=== PATIENT | male | born 1995 | race Caucasian/White ===

== ENCOUNTER 2021-06-12 23:35 | Emergency (ER) | payer MEDICAID ==
[~2021-06-12] VITALS: Ht 185.4 cm; Wt 90.6 kg
[2021-06-12 23:40] VITALS: BP 147/81
[2021-06-13 01:01] LABS: BASOPHILS % 0.7 % (0.0-2.0); EOSINOPHILS % 0.9 % (0.0-5.0); HEMATOCRIT. 41.8 % (42.0-52.0); LYMPHOCYTES % 24.7 % (20.0-50.0); MEAN CORPUSCULAR HEMOGLOBIN 31.8 pg (28.0-32.0); MEAN PLATELET VOLUME 9.5 fl (7.4-10.4); MONOCYTES % 10.2 % (2.0-8.0); NEUTROPHILS % 63.5 % (40.0-76.0); PLATELET 267 x1000/uL (130-400); RED CELL DISTRIBUTION WIDTH 13.3 % (11.6-14.6)
[2021-06-13 01:07] LABS: CHLORIDE 108 mEq/L (98-107)
[2021-06-13 01:41] LABS: CLARITY URINE CLEAR (CLEAR); COLOR URINE YELLOW (YELLOW); KETONES URINE TRACE (NEGATIVE); LEUKOCYTE ESTERASE URINE TRACE (NEGATIVE); NITRITE URINE NEGATIVE (NEGATIVE); OCCULT BLOOD URINE NEGATIVE (NEGATIVE); PH URINE 5.5 (4.5-8.0); PROTEIN URINE TRACE (NEGATIVE); SPECIFIC GRAVITY URINE 1.028 (1.005-1.030)
[2021-06-13] MEDS ORDERED: MAGNESIUM/ALUMINUM HYDROXIDE/SIMETHICONE 30ML UDC PO NR (02:07)
[2021-06-13] MEDS ORDERED: DICYCLOMINE 10 MG/5 ML ORAL SYR PO NR (02:07)
[2021-06-13] MEDS ORDERED: IMOD MT (03:39)
== END 2021-06-13 04:01 | disposition home or self-care (01) ==
LOC: ER 23:35
DX: R10.9 Unspecified abdominal pain (principal); R19.7 Diarrhea, unspecified
CPT/HCPCS: 36415; 80053; 81003; 85025; 99283

== ENCOUNTER 2021-06-21 23:53 | Emergency (ER) | payer MEDICAID ==
[~2021-06-21] VITALS: Ht 185.4 cm; Wt 91.2 kg
[~2021-06-21 23:53] MED LIST: IMOD MT
[2021-06-22 00:09] VITALS: BP 136/70
[2021-06-22] MEDS ORDERED: LORAZEPAM 1MG TABLET PO ONE (01:00)
[2021-06-22 01:44] LABS: METHADONE URINE SCREEN NEGATIVE (NEGATIVE)
[2021-06-22 01:45] LABS: OPIATES URINE SCREEN NEGATIVE (NEGATIVE)
[2021-06-22 01:46] LABS: *AMPHETAMINES SCREEN URINE NEGATIVE (NEGATIVE); *BARBITURATES SCREEN URINE NEGATIVE (NEGATIVE); *BENZODIAZEPINES SCREEN URINE NEGATIVE (NEGATIVE); *COCAINE SCREEN URINE NEGATIVE (NEGATIVE); CANNABINOID URINE SCREEN PRESUMTIVE POSITIVE (NEGATIVE); PHENCYCLIDINE URINE SCREEN NEGATIVE (NEGATIVE)
== END 2021-06-22 03:06 | disposition home or self-care (01) ==
LOC: ER 23:53
DX: F12.10 Cannabis abuse, uncomplicated (principal); R00.2 Palpitations; R07.89 Other chest pain
CPT/HCPCS: 71045; 80305; 93005; 99285